=== PATIENT | male | born 1995 | race African-American/Black ===

== ENCOUNTER 2025-07-25 06:21 | Emergency (ER) | payer BC ==
[~2025-07-25] VITALS: Ht 177.8 cm; Wt 74.5 kg
[2025-07-25 06:36] VITALS: TEMP 98.1
[2025-07-25 06:58] LABS: PLATELET COUNT (AUTO) 264 K/uL (150-450); RED BLOOD CELL COUNT(AUTO) 5.53 MIL/uL (4.50-5.90); RED CELL DISTRIBUTION WIDTH 13.2 % (11.5-14.5); WHITE BLOOD COUNT (AUTO) 7.9 K/uL (4.5-11.0)
[2025-07-25 07:07] LABS: CALCIUM, TOTAL 9.3 mg/dL (8.8-10.5); CREATININE 1.04 mg/dL (0.60-1.30); GLOMERULAR FILTR. RATE CALC > 60 mL/min (>60); GLUCOSE,RANDOM 143 mg/dL (70-110); SODIUM SERUM 138 mmol/L (136-145); UREA NITROGEN, BLOOD 8 mg/dL (7-18)
[2025-07-25 07:14] LABS: ASPARTATE AMINOTRANSFERASE 15.0 U/L (15-37); TOTAL PROTEIN, SERUM 7.9 g/dL (6.4-8.2)
[2025-07-25 07:19] LABS: TROPONIN I-HIGH SENSITIVITY 8 ng/L (<76)
[2025-07-25] MEDS: ACETAMINOPHEN 500 MG TABLET PO ONE (07:19)
[2025-07-25] MEDS: FAMOTIDINE 20 MG TABLET PO ONE (07:19)
[2025-07-25] MEDS: MAG HYDROX/ALUMINUM HYD/SIMETH 30 ML SUSPENSION UDCUP PO ONE (07:19)
[2025-07-25] MEDS: ONDANSETRON 4 MG TABLET PO ONE (07:19)
[2025-07-25 09:15] LABS: TROPONIN I-HIGH SENSITIVITY 9 ng/L (<76)
[2025-07-25 09:29] VITALS: BP 155/92; PULSE 79; RESP 16; O2SAT 99
[2025-07-25] MEDS ORDERED: OMEP-148 PO (10:22)
== END 2025-07-25 11:02 | disposition left against medical advice (07) ==
LOC: EMS 06:21
DX: R10.13 Epigastric pain (principal); R11.2 Nausea with vomiting, unspecified; R07.89 Other chest pain; R94.31 Abnormal electrocardiogram [ECG] [EKG]; F17.210 Nicotine dependence, cigarettes, uncomplicated
CPT/HCPCS: 99285; 76705; 71045; 80048; 80076; 83690; 84484; 85025; 85610; 85730; 36415; 93005; Q0162